=== PATIENT | male | born 1975 | race Two or more races ===

== ENCOUNTER 2021-06-24 13:23 | Inpatient (IN) | payer MEDICAID, OTHER ==
[~2021-06-24] VITALS: Ht 172.7 cm; Wt 121.6 kg
[2021-06-24 14:26] LABS: Basophils # (auto) 0 10 ^3/uL (0-0.2); Eosinophils # (auto) 0 10 ^3/uL (0-0.8); Hematocrit 51.4 % (41.0-53.0); Lymphocytes # (auto) 0.4 10 ^3/uL (0.4-5.4); Monocytes # (auto) 0.5 10 ^3/uL (0-1.3); Red Cell Distribution Width 12.4 % (11.8-14.3)
[2021-06-24 14:29] LABS: Basophils % (auto) 0.4 % (0.0-2.0); Lymphocytes % (auto) 10.5 % (10.0-50.0); Mean Corpuscular Hemoglobin 31.9 pg (28.0-32.0); Mean Corpuscular Hgb Conc. 35.1 g/dL (32.0-36.0); Monocytes % (auto) 11.2 % (0.0-12.0); Neutrophils # (auto) 3.1 10 ^3/uL (1.6-8.6); Neutrophils % (auto) 77.9 % (37.0-80.0); Nucleated Red Blood Cells % 0.3 %; Red Blood Cells 5.64 10^6/uL (4.5-5.90)
[2021-06-24] MEDS ORDERED: ACETAMINOPHEN 325 MG TAB PO ONE (14:30)
[2021-06-24 14:51] LABS: Albumin 3.5 g/dL (3.4-5.0); Anion Gap 7 (5-15); Blood Alcohol < 3.0 mg/dL (0-5); Blood Urea Nitrogen 10 mg/dL (7-18); Calcium 8.3 mg/dL (8.5-10.1); Carbon Dioxide 27 mmol/L (21-32); Chloride 94 mmol/L (98-107); Glucose 208 mg/dL (74-106); Potassium 4.5 mmol/L (3.5-5.1); Sodium 128 mmol/L (136-145)
[2021-06-24 15:04] LABS: Alanine Aminotransferase 54 U/L (16-61); Alkaline Phosphatase 104 U/L (45-117); Aspartate Aminotransferase 60 U/L (15-37); BUN/Creatinine Ratio 10.9; Bilirubin, Total 0.8 mg/dL (0.2-1.0); GFR African American 113 mL/min; GFR Non-African American 94 mL/min; Total Protein 8.5 g/dL (6.4-8.2)
[2021-06-24] MEDS ORDERED: SODIUM CHLORIDE 0.9% 1,000 ML IV ONE (15:30)
[2021-06-24] MEDS ORDERED: AZITHROMYCIN 500MG/ 250ML 250 ML IV ONE (16:00)
[2021-06-24] MEDS ORDERED: DexAMETHasone SOD PHOS 10MG/1ML VIAL INJ IV ONE (16:00)
[2021-06-24] MEDS ORDERED: cefTRIAXone 1GM/50ML D5W 50 ML IV ONE (16:00)
[2021-06-24] MEDS ORDERED: DOCUSATE CALCIUM 240 MG CAP PO PRN (18:00)
[2021-06-24] MEDS ORDERED: REMDESIVIR PER PHARMACY 0 ML IV SCH (18:00)
[2021-06-24] MEDS ORDERED: ONDANSETRON HCL 4 MG/2 ML VIAL IV PRN (18:00)
[2021-06-24] MEDS ORDERED: LABETALOL HCL 5 MG/ML 4ML SYRINGE IV PRN (18:00)
[2021-06-24] MEDS ORDERED: SODIUM CHLORIDE 0.9% 2,000 ML IV ONE (18:00)
[2021-06-24] MEDS ORDERED: MORPHINE SULFATE INJECTION 2 MG/ML SYRG IV PRN (18:00)
[2021-06-24] MEDS ORDERED: NITROGLYCERIN 0.4 MG SL TAB SL PRN (18:00)
[2021-06-24] MEDS ORDERED: IPRATROPIUM BROM 0.5 MG/2.5ML INH SOL NEB PRN (18:00)
[2021-06-24 18:25] LABS: Urine Bacteria NONE SEEN /hpf (None Seen); Urine Blood Negative /uL (Negative); Urine Mucus FEW (None Seen); Urine Specific Gravity 1.009 (1.001-1.035); Urine WBC <1 /hpf (0 - 3)
[2021-06-24] MEDS ORDERED: DEXTROSE (50%) 50ML SYRG IV PRN (18:30)
[2021-06-24] MEDS: SODIUM CHLORIDE 0.9% 1,000 ML IV SCH (18:49)
[2021-06-24] MEDS: InsuLIN REG 1unit/0.01ml Soln (100units/ml) SC SCH ×2 (20:00→23:46)
[2021-06-24] MEDS: ACCU-CHEK COMFORT CURVE STRIP VI SCH ×2 (20:17→23:37)
[2021-06-24] MEDS: BUDESONIDE (INHALATION) 180 MCG IH IN SCH (22:00)
[2021-06-24] MEDS: INSULIN LANTUS (GLARGINE) 1 /0.01ml (100units/ml) SC SCH (22:00)
[2021-06-24] MEDS ORDERED: REMDESIVIR 200 MG in NS 210ml LOADING DOSE ADULT IV ONE (22:00)
[2021-06-24] MEDS: ENOXAPARIN SOD 40 MG/0.4 ML SYRINGE SC SCH (23:30)
[2021-06-25 04:39] VITALS: BP 119/88
[2021-06-25] MEDS: MORPHINE SULFATE INJECTION 2 MG/ML SYRG IV PRN ×2 (04:46→06:51)
[2021-06-25 05:00] VITALS: BP 119/88
[2021-06-25] MEDS ORDERED: INFLUENZA QUAD 2021-2022 0.5 ML SYRG IM ONE (05:15)
[2021-06-25] MEDS ORDERED: PNEUMOCOCCAL VACC POLYS 25 MCG/0.5 ML VIAL IM ONE (05:15)
[2021-06-25] MEDS: ACCU-CHEK COMFORT CURVE STRIP VI SCH ×6 (05:41→23:52)
[2021-06-25] MEDS: InsuLIN REG 1unit/0.01ml Soln (100units/ml) SC SCH ×5 (05:42→20:00)
[2021-06-25] MEDS: SODIUM CHLORIDE 0.9% 1,000 ML IV SCH ×3 (06:38→23:52)
[2021-06-25 08:00] VITALS: BP 134/81
[2021-06-25] MEDS: cefTRIAXone 1GM/50ML D5W 50 ML IV SCH (09:00)
[2021-06-25] MEDS: ZINC SULFATE 220mg CAP or TAB PO SCH (09:55)
[2021-06-25] MEDS: ENOXAPARIN SOD 40 MG/0.4 ML SYRINGE SC SCH ×2 (09:55→21:48)
[2021-06-25] MEDS: CHOLECALCIFEROL (VITD3) 2,000 UNIT CAP/TAB PO SCH (09:56)
[2021-06-25] MEDS: PANTOPRAZOLE 40 MG TAB PO SCH (09:56)
[2021-06-25] MEDS: DexAMETHasone SOD PHOS 10MG/1ML VIAL INJ IV SCH (09:56)
[2021-06-25] MEDS: ASCORBIC ACID 1,000 MG TAB PO SCH (09:56)
[2021-06-25] MEDS: BUDESONIDE (INHALATION) 180 MCG IH IN SCH ×2 (10:00→22:20)
[2021-06-25] MEDS: AZITHROMYCIN 500MG/ 250ML 250 ML IV SCH (10:00)
[2021-06-25 10:06] LABS: Potassium 4.6 mmol/L (3.5-5.1)
[2021-06-25 10:16] LABS: Albumin 3.1 g/dL (3.4-5.0); BUN/Creatinine Ratio 15.1; Bilirubin, Total 0.6 mg/dL (0.2-1.0); CRP High Sensitivity 4.87 mg/dL (< 0.3); Calcium 8.4 mg/dL (8.5-10.1); Magnesium 2.2 mg/dL (1.6-2.6); Total Protein 7.2 g/dL (6.4-8.2)
[2021-06-25] MEDS ORDERED: REMDESIVIR 200 MG in NS 210ml LOADING DOSE ADULT IV ONE (11:00)
[2021-06-25] MEDS: ACETAMINOPHEN 500 MG TAB PO PRN ×2 (11:13→20:34)
[2021-06-25 12:00] VITALS: BP 133/86
[2021-06-25 15:54] VITALS: BP 123/79
[2021-06-25] MEDS: INSULIN LANTUS (GLARGINE) 1 /0.01ml (100units/ml) SC SCH (21:47)
[2021-06-25 22:00] VITALS: BP 133/75
[2021-06-25] MEDS: ALBUTEROL SULF HFA 90MCG INH 200DOSE IN PRN (22:21)
[2021-06-26] MEDS: InsuLIN REG 1unit/0.01ml Soln (100units/ml) SC SCH ×4 (00:06→12:04)
[2021-06-26] MEDS: ACCU-CHEK COMFORT CURVE STRIP VI SCH ×3 (04:26→12:04)
[2021-06-26] MEDS: ACETAMINOPHEN 500 MG TAB PO PRN (04:31)
[2021-06-26 05:00] VITALS: BP 151/86
[2021-06-26 07:19] LABS: Potassium 3.7 mmol/L (3.5-5.1)
[2021-06-26 07:34] LABS: Albumin 2.9 g/dL (3.4-5.0); BUN/Creatinine Ratio 23.6; Bilirubin, Total 0.5 mg/dL (0.2-1.0); CRP High Sensitivity 2.22 mg/dL (< 0.3); Calcium 8.1 mg/dL (8.5-10.1); Total Protein 7.5 g/dL (6.4-8.2)
[2021-06-26] MEDS: ALBUTEROL SULF HFA 90MCG INH 200DOSE IN PRN (07:54)
[2021-06-26] MEDS: BUDESONIDE (INHALATION) 180 MCG IH IN SCH (07:54)
[2021-06-26 08:00] VITALS: BP 127/81
[2021-06-26 09:04] LABS: Basophils # (auto) 0.1 10 ^3/uL (0-0.2); Eosinophils # (auto) 0 10 ^3/uL (0-0.8); Eosinophils % (auto) 0.1 % (0.0-7.0); Hematocrit 48.7 % (41.0-53.0); Lymphocytes % (auto) 20.7 % (10.0-50.0); Mean Corpuscular Hemoglobin 31.8 pg (28.0-32.0); Mean Corpuscular Hgb Conc. 34.9 g/dL (32.0-36.0); Monocytes # (auto) 0.6 10 ^3/uL (0-1.3); Monocytes % (auto) 11.9 % (0.0-12.0); Neutrophils # (auto) 3.3 10 ^3/uL (1.6-8.6); Neutrophils % (auto) 66.3 % (37.0-80.0); Nucleated Red Blood Cells % 0.7 %; Red Blood Cells 5.35 10^6/uL (4.5-5.90); Red Cell Distribution Width 12.3 % (11.8-14.3)
[2021-06-26] MEDS: cefTRIAXone 1GM/50ML D5W 50 ML IV SCH (09:52)
[2021-06-26] MEDS: ENOXAPARIN SOD 40 MG/0.4 ML SYRINGE SC SCH (09:52)
[2021-06-26] MEDS: DexAMETHasone SOD PHOS 10MG/1ML VIAL INJ IV SCH (09:52)
[2021-06-26] MEDS: CHOLECALCIFEROL (VITD3) 2,000 UNIT CAP/TAB PO SCH (09:53)
[2021-06-26] MEDS: ASCORBIC ACID 1,000 MG TAB PO SCH (09:53)
[2021-06-26] MEDS: AZITHROMYCIN 500MG/ 250ML 250 ML IV SCH (09:53)
[2021-06-26] MEDS: ZINC SULFATE 220mg CAP or TAB PO SCH (09:53)
[2021-06-26] MEDS: PANTOPRAZOLE 40 MG TAB PO SCH (09:53)
[2021-06-26] MEDS: SODIUM CHLORIDE 0.9% 1,000 ML IV SCH (10:00)
[2021-06-26 11:50] VITALS: BP 117/70
[2021-06-26] MEDS ORDERED: REMDESIVIR 100mg 100 MG in SODIUM CHL 0.9% 230 ML IV SCH (15:00)
[2021-06-26 16:00] VITALS: BP 147/98
[2021-06-26] MEDS ORDERED: GLIP10TA9 PO (16:38)
[2021-06-26] MEDS ORDERED: AZIT500T66 PO (16:38)
[2021-06-26] MEDS ORDERED: BENZ100C19 PO (16:38)
[2021-06-26] MEDS ORDERED: BUDE20SU (16:38)
== END 2021-06-26 18:35 | disposition home or self-care (01) | DRG 137 ==
LOC: EDBD 13:23 → ER 13:23 → TELE 17:56 → TELE-WESTW 06-25 03:50
PROVIDERS: ADMIT Family Medicine; ATTEND Hospitalist
PROC: 3E0234Z Introduction of Serum, Toxoid and Vaccine into Muscle, Percutaneous Approach (ICD-10-PCS; 2021-06-25)
PROC: 3E02340 Introduction of Influenza Vaccine into Muscle, Percutaneous Approach (ICD-10-PCS; 2021-06-25)
PROC: XW033E5 Introduction of Remdesivir Anti-infective into Peripheral Vein, Percutaneous Approach, New Technology Group 5 (ICD-10-PCS; principal; 2021-06-26)
DX: U07.1 COVID-19 (principal); J12.82 Pneumonia due to coronavirus disease 2019; R06.03 Acute respiratory distress; E87.1 Hypo-osmolality and hyponatremia; E11.65 Type 2 diabetes mellitus with hyperglycemia; E66.01 Morbid (severe) obesity due to excess calories; E86.0 Dehydration; E78.5 Hyperlipidemia, unspecified; I10 Essential (primary) hypertension; R09.02 Hypoxemia; Z68.41 Body mass index [BMI] 40.0-44.9, adult; Z23 Encounter for immunization
CPT/HCPCS: 36415; 36600; 71045; 80053; 80320; 81001; 82306; 82728; 82805; 82962; 83036; 83605; 83615; 83735; 84443; 84484; 85025; 85379; 86141; 87040; 87426; 93005; 93306; 94640; 96361; 96365; 96368; 96375; 99291; G0378; J0696; J1100; J1815